=== PATIENT | female | born 1975 | race African-American/Black ===

== ENCOUNTER 2017-03-17 19:11 | Emergency (ER) | payer OTHER, BC ==
[~2017-03-17] VITALS: Ht 157.5 cm; Wt 142.9 kg
[2017-03-17 19:30] VITALS: BP 140/82
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
[2017-03-17] MEDS ORDERED: KETOROLAC 60 MG/2 ML VIAL. IM ONE (20:30)
[2017-03-17] MEDS ORDERED: MORPHINE SULFATE 10 MG/ML SYRINGE. SQ ONE (20:30)
[2017-03-17] MEDS ORDERED: ORPHENADRINE CITRATE 60 MG/2 ML VIAL. IM ONE (20:30)
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
[2017-03-17] MEDS ORDERED: CYCL-331 PO (21:51)
[2017-03-17] MEDS ORDERED: HYDR-79 PO (21:51)
== END 2017-03-17 22:05 | disposition home or self-care (01) ==
LOC: ER 19:11
DX: S13.4XXA Sprain of ligaments of cervical spine, initial encounter (principal); S33.5XXA Sprain of ligaments of lumbar spine, initial encounter; M54.41 Lumbago with sciatica, right side; V89.2XXA Person injured in unspecified motor-vehicle accident, traffic, initial encounter; Y93.89 Activity, other specified; Y99.8 Other external cause status; Y92.89 Other specified places as the place of occurrence of the external cause
CPT/HCPCS: 72125; 72131; 96372; 99284; J1885; J2270; J2360